=== PATIENT | female | born 1990 | race African-American/Black ===

== ENCOUNTER 2020-07-23 13:42 | Emergency (ER) | payer OTHER ==
[~2020-07-23] VITALS: Ht 167.6 cm; Wt 68.0 kg
[2020-07-23 14:20] VITALS: BP 105/67
--- NOTE | 2020-07-23 14:25 | NUR ---
ED Nurse Note: Patient was brought in by ambulance from [facility] due to abnormal labs (WBC 27, NA 131) and having fever 102.4F. Patient presented caln, and cooperative, AAIO x2, Temp 102.4 other VSS at this time. Patient presented with many wounds, preassure ulcers, scratches.
--- NOTE | 2020-07-23 14:28 | NUR ---
ED Nurse Note: BLOOD COLECTED ENT TO LAB
[2020-07-23] MEDS ORDERED: Acetaminophen 500mg (ES) tab ORAL ONE (14:45)
[2020-07-23 15:00] LABS: HEMATOCRIT 29.4 % (37.0-47.0); HEMOGLOBIN 9.7 G/DL (12.0-16.0); MEAN CORPUSCULAR VOLUME 87 FL (80-99); PLATELET COUNT 532 K/UL (150-450); RED BLOOD COUNT 3.36 M/UL (4.20-5.40); RED CELL DISTRIBUTION WIDTH 16.7 % (11.6-14.8)
[2020-07-23] MEDS ORDERED: FOLIC ACID1 MG ORAL (15:04)
[2020-07-23] MEDS ORDERED: LOVENOX10 M4 SUBQ (15:04)
[2020-07-23] MEDS ORDERED: VITAMIN D325 MC1 PO (15:04)
[2020-07-23] MEDS ORDERED: DEXAMETHASONE4 MG PO (15:04)
[2020-07-23] MEDS ORDERED: ASCORBIC ACID500 MG ORAL (15:04)
[2020-07-23] MEDS ORDERED: ACETAMINOPHEN325 M1 ORAL (15:04)
[2020-07-23] MEDS ORDERED: ZINC SULFATE220 M1 ORAL (15:04)
[2020-07-23] MEDS ORDERED: NORCO 5-325 TA1 EAC1 ORAL (15:05)
--- NOTE | 2020-07-23 15:05 | NUR ---
ED Nurse Note: PATIENT IS COVID +
[2020-07-23 15:17] LABS: WHITE BLOOD COUNT 22.7 K/UL (4.8-10.8)
[2020-07-23 15:43] LABS: ANION GAP 11 mmol/L (5-15); BLOOD UREA NITROGEN 16 mg/dL (7-18); CALCIUM 8.7 MG/DL (8.5-10.1); CARBON DIOXIDE 23 MMOL/L (21-32); CHLORIDE 93 MMOL/L (98-107); CREATININE 0.7 MG/DL (0.55-1.30); POTASSIUM 3.3 MMOL/L (3.5-5.1); SODIUM 127 MMOL/L (136-145)
[2020-07-23 15:58] LABS: ALANINE AMINOTRANSFERASE 40 U/L (12-78); ALBUMIN/GLOBULIN RATIO 0.3 (1.0-2.7); ALKALINE PHOSPHATASE 70 U/L (46-116); ASPARTATE AMINO TRANSFERASE 31 U/L (15-37); BILIRUBIN,TOTAL 0.3 MG/DL (0.2-1.0); CKMB < 0.5 NG/ML (0.0-3.6); CREATINE KINASE 33 U/L (26-308); FERRITIN 645 NG/ML (8-388); LACTATE DEHYDROGENASE 191 U/L (81-234)
[2020-07-23] MEDS ORDERED: Enoxaparin 100mg Inj SUBQ ONE (16:15)
[2020-07-23] MEDS ORDERED: dexAMETHasone 10mg/ml Inj IV ONE (16:15)
--- NOTE | 2020-07-23 16:40 | Diagnostic Imaging Report ---
Indication: Reason For Exam: COUGH Technique: Single AP view of the chest. Comparison: None. Findings: The cardiomediastinal silhouette is within normal limits. There is no focal consolidation, pneumothorax or pleural effusion. Osseous structures demonstrate no acute abnormality. Right PICC terminates in the expected location of the mid SVC. IMPRESSION: No radiographic evidence of acute cardiopulmonary process.
[2020-07-23 16:52] VITALS: BP 105/67
--- NOTE | 2020-07-23 16:52 | NUR ---
Report was given to TOBIN Ole[facility] at [facility]
[2020-07-23 16:54] VITALS: BP 105/67
--- NOTE | 2020-07-23 16:56 | NUR ---
ED Nurse Note: Patient was transfered to [facility] due to abnormal labs, COVID +. Patient was ransfered to the [facility] via private [facility] rtransportation unit #[id number]. Patient AAO x2, VSS at this time. Patient took all belongings.
--- NOTE | 2020-07-23 17:13 | Emergency Room Report ---
History of Present Illness General Chief Complaint: Abnormal Labs Source: Medical Record Present Illness HPI 29 yo 29 yo F presents for evaluation. patient from SNF for elevated sodium and fever. h/o ESRD. patient mj cough, SOB. denies nausea or vomiting. no other aggravating or relieving factors. denies any other associated symptoms. 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 COVID-19 Screening: Negative COVID-19 COVID-19 Testing Source: RING FACER Patient History Past Medical History: DM, renal disease Past Surgical History: none Pertinent Family History: none Social History: Denies: smoking, alcohol use, drug use Now: No Immunizations: UTD Reviewed Nursing Documentation: PMH: Agreed; PSxH: Agreed Nursing Documentation-PMH Past Medical History: No History, Except For Hx Diabetes: Yes Hx Dialysis: Yes - ESRD Review of Systems All Other Systems: negative except mentioned in HPI Physical Exam Vital Signs Date Time Temp Pulse Resp B/P (MAP) Pulse Ox O2 Delivery O2 Flow Rate FiO2 07/23/20 14:06 100.9 133 33 103/67 (79) 94 Room Air Sp02 EP Interpretation: reviewed, normal General Appearance: no apparent distress, alert, GCS 15, non-toxic Head: normocephalic, atraumatic Eyes: bilateral eye normal inspection, bilateral eye PERRL ENT: hearing grossly normal, normal pharynx, no angioedema, normal voice Neck: full range of motion, supple/symm/no masses Respiratory: chest non-tender, lungs clear, normal breath sounds, speaking full sentences Cardiovascular #1: regular rate, rhythm, no edema Cardiovascular #2: 2+ carotid (R), 2+ carotid (L), 2+ radial (R), 2+ radial (L), 2+ dorsalis pedis (R), 2+ dorsalis pedis (L) Gastrointestinal: normal bowel sounds, non tender, soft, non-distended, no guarding, no rebound Rectal: deferred Genitourinary: normal inspection, no CVA tenderness Musculoskeletal: back normal, normal range of motion, gait/station normal, non- tender Neurologic: alert, motor strength/tone normal, oriented x3, sensory intact, responsive, speech normal Psychiatric: judgement/insight normal, memory normal, mood/affect normal, no suicidal/homicidal ideation Reflexes: 3+ bicep (R), 3+ bicep (L), 3+ tricep (R), 3+ tricep (L), 3+ knee (R), 3+ knee (L) Skin: other - see nursing notes Lymphatic: no adenopathy Medical Decision Making Diagnostic Impression: Primary Impression: COVID-19 Additional Impression: Hyponatremia ER Course Hospital Course 29 yo F presents to ED for fever, abnormal labs. from SNF. Differential diagnoses include: Pneumonia, UTI, sepsis, dehydration, PA/unstable angina Clinical course Patient placed on stretcher. In isolation. I wore full PPE. 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 After initial history and physical, I ordered labs, IV fluids, EKG, chest x-ray, blood cultures, UA. Labs - Na low, marked leukocytosis, troponins negative COVID + CXR - no acute process EKG - sinus tachycardia no acute ischemic changes interpreted by me Abx given. Dexamethasone. Given Lovenox. Given small IV fluid bolus. becaus of insurance patient will be transferred I feel this is a highly complex case requiring extensive working including EKG/Rhythm strip, Xray/CT/US, Blood/urine lab work, repeat exams while in ED, and administration of strong opiates/narcotics for pain control, admission to hospital or close patient follow up. Diagnosis - COVID 19, hyponatremia Transferred in serious condition Laboratory Tests Test 07/23/20 14:45 White Blood Count 22.7 K/UL (4.8-10.8) *H Red Blood Count 3.36 M/UL (4.20-5.40) L Hemoglobin 9.7 G/DL (12.0-16.0) L Hematocrit 29.4 % (37.0-47.0) L Mean Corpuscular Volume 87 FL (80-99) Mean Corpuscular Hemoglobin 28.9 PG (27.0-31.0) Mean Corpuscular Hemoglobin Concent 33.0 G/DL (32.0-36.0) Red Cell Distribution Width 16.7 % (11.6-14.8) H Platelet Count 532 K/UL (150-450) H Mean Platelet Volume 6.5 FL (6.5-10.1) Neutrophils (%) (Auto) % (45.0-75.0) Lymphocytes (%) (Auto) % (20.0-45.0) Monocytes (%) (Auto) % (1.0-10.0) Eosinophils (%) (Auto) % (0.0-3.0) Basophils (%) (Auto) % (0.0-2.0) Differential Total Cells Counted 100 Neutrophils % (Manual) 87 % (45-75) H Lymphocytes % (Manual) 7 % (20-45) L Monocytes % (Manual) 6 % (1-10) Eosinophils % (Manual) 0 % (0-3) Basophils % (Manual) 0 % (0-2) Band Neutrophils 0 % (0-8) Platelet Estimate Increased H Platelet Morphology Normal Hypochromasia 1+ Anisocytosis 1+ Prothrombin Time 11.5 SEC (9.30-11.50) Prothromb Time International Ratio 1.0 (0.9-1.1) Activated Partial Thromboplast Time 34 SEC (23-33) H D-Dimer 3.42 mg/L FEU (0.00-0.49) H Sodium Level 127 MMOL/L (136-145) L Potassium Level 3.3 MMOL/L (3.5-5.1) L Chloride Level 93 MMOL/L (98-107) L Carbon Dioxide Level 23 MMOL/L (21-32) Anion Gap 11 mmol/L (5-15) Blood Urea Nitrogen 16 mg/dL (7-18) Creatinine 0.7 MG/DL (0.55-1.30) Estimat Glomerular Filtration Rate > 60 mL/min (>60) Glucose Level 114 MG/DL (74-106) H Lactic Acid Level 1.60 mmol/L (0.4-2.0) Calcium Level 8.7 MG/DL (8.5-10.1) Ferritin 645 NG/ML (8-388) H Total Bilirubin 0.3 MG/DL (0.2-1.0) Aspartate Amino Transf (AST/SGOT) 31 U/L (15-37) Alanine Aminotransferase (ALT/SGPT) 40 U/L (12-78) Alkaline Phosphatase 70 U/L (46-116) Lactate Dehydrogenase 191 U/L (81-234) Total Creatine Kinase 33 U/L (26-308) Creatine Kinase MB < 0.5 NG/ML (0.0-3.6) Creatine Kinase MB Relative Index 1.5 Troponin I 0.000 ng/mL (0.000-0.056) C-Reactive Protein, Quantitative 22.0 mg/dL (0.00-0.90) H Pro-B-Type Natriuretic Peptide 25 pg/mL (0-125) Total Protein 8.0 G/DL (6.4-8.2) Albumin 2.0 G/DL (3.4-5.0) L Globulin 6.0 g/dL Albumin/Globulin Ratio 0.3 (1.0-2.7) L Lipase 955 U/L (73-393) H EKG Diagnostic Results Troponin ordered: Yes Rate: tachycardiac Rhythm: NSR ST Segments: no acute changes ASA given to the pt in ED: No Rhythm Strip Diag. Results EP Interpretation: yes Rhythm: NSR, no PVC's, no ectopy Chest X-Ray Diagnostic Results Chest X-Ray Diagnostic Results : Chest X-Ray Ordered: Yes # of Views/Limited/Complete: 1 View Indication: Other EP Interpretation: Yes Interpretation: no consolidation, no effusion, no pneumothorax, no acute ca rdiopulmonary disease Impression: No acute disease Electronically Signed by: Electronically signed by Rivera Martin MD Last Vital Signs Date Time Temp Pulse Resp B/P (MAP) Pulse Ox O2 Delivery O2 Flow Rate FiO2 07/23/20 16:54 100.0 89 22 105/67 95 Room Air Status: improved Disposition: SHORT-TERM HOSP Condition: Serious Referrals: Rico Torres M.D. (PCP) Rivera Martin MD Jul 23, 2020 17:12
--- NOTE | 2020-07-24 15:56 | Cardiology Report ---
APPROVED REPORT EKG Measurement Heart [id number] ID [id number] <Conclusion> Sinus tachycardia Rightward axis T wave abnormality, consider inferior ischemia Abnormal ECG
== END 2020-07-23 16:59 | disposition short-term general hospital (02) ==
LOC: EDBD 13:42 → EMR 15:00 → EDBEDREQ 15:29 → EMR 16:59
DX: U07.1 COVID-19 (principal); E87.1 Hypo-osmolality and hyponatremia; E11.22 Type 2 diabetes mellitus with diabetic chronic kidney disease; N18.6 End stage renal disease
CPT/HCPCS: 71045; 80053; 82550; 82553; 82728; 83605; 83615; 83690; 83880; 84484; 85007; 85025; 85379; 85610; 85730; 86140; 87040; 93005; 96365; 96372; 96375; J1650; J1956; U0002; Z7502; 99284; J7030